=== PATIENT | female | born 1960 | race Caucasian/White ===

== ENCOUNTER 2020-04-30 13:50 | Inpatient (IN) | payer OTHER ==
[~2020-04-30] VITALS: Ht 168.9 cm; Wt 60.6 kg
[~2020-04-30 13:50] MED LIST: ANAS1TAB49 PO
[2020-04-30] MEDS ORDERED: MORPHINE SULFATE 4 MG/ML, 1ML ONE ×2 (14:13→17:21)
[2020-04-30] MEDS ORDERED: ONDANSETRON 2MG/ML, 2ML ONE (14:13)
[2020-04-30] MEDS: MORPHINE SULFATE 4 MG/ML, 1ML IVPush PRN ×2 (14:22→17:27)
[2020-04-30] MEDS ORDERED: ONDANSETRON 2MG/ML, 2ML IVPush ONE (14:30)
[2020-04-30] MEDS ORDERED: SODIUM CHLORIDE 0.9% 1,000ML IVBOLUS ONE (14:30)
[2020-04-30 14:33] LABS: BASOPHILS # (AUTO) 0.07 x10^3/uL (0-0.1); BASOPHILS % (AUTO) 1 % (0-1); EOSINOPHILS # (AUTO) 0.09 x10^3/uL (0-0.4); EOSINOPHILS % (AUTO) 1 % (1-7); LYMPHOCYTES # (AUTO) 1.45 x10^3/uL (1-3.4); LYMPHOCYTES % (AUTO) 15 % (22-44); MD NO; MEAN CORPUSCULAR HEMOGLOBIN 35.9 pg (27.0-34.8); MEAN CORPUSCULAR HGB CONC 33.4 g/dL (32.4-35.8); MEAN CORPUSCULAR VOLUME 107.7 fL (80-100); MEAN PLATELET VOLUME 10.9 fL (7.4-10.4); MONOCYTES # (AUTO) 0.91 x10^3/uL (0.2-0.8); MONOCYTES % (AUTO) 9 % (2-9); NEUTROPHILS # (AUTO) 7.24 x10^3/uL (1.8-6.8); NEUTROPHILS % (AUTO) 74 % (42-75); PLATELET COUNT 132 x10^3/uL (130-400); RED BLOOD COUNT 4.01 x10^6/uL (3.82-5.3)
[2020-04-30 14:45] LABS: ALANINE AMINOTRANSFERASE 49 U/L (12-78); ALBUMIN 3.2 g/dL (3.4-5.0); ANION GAP 6 mmol/L (5-15); CALCIUM 9.6 mg/dL (8.5-10.1); CHLORIDE 107 mmol/L (98-107); CREATININE 0.41 mg/dL (0.55-1.02)
[2020-04-30 14:47] LABS: ALKALINE PHOSPHATASE 200 U/L (45-117); BILIRUBIN,TOTAL 1.2 mg/dL (0.2-1.0); TOTAL PROTEIN 7.5 g/dL (6.4-8.2)
--- NOTE | 2020-04-30 15:00 | NUR ---
xr neg labs back ua pending. ivf infused. call conteh. as
[2020-04-30 15:11] LABS: MICROSCOPIC NOT IND
--- NOTE | 2020-04-30 15:34 | NUR ---
plan ct. as
--- NOTE | 2020-04-30 16:03 | NUR ---
to ct. as
[2020-04-30] MEDS ORDERED: OMNIPAQUE 350 MG/ML, 100ML BOTTLE ONE (16:18)
[2020-04-30] MEDS ORDERED: CIPROFLOXACIN/PMX 400MG/200ML 100 ML IVPB ONE (17:00)
[2020-04-30] MEDS ORDERED: METRONIDAZOLE PMX 500MG/100ML 100 ML IVPB ONE (17:00)
[2020-04-30] MEDS ORDERED: METRONIDAZOLE PMX 500MG/100ML 100 ML ONE (17:21)
[2020-04-30] MEDS ORDERED: CIPROFLOXACIN/PMX 400MG/200ML 200 ML ONE (17:21)
--- NOTE | 2020-04-30 18:11 | NUR ---
ADSMIT ORDER OBTAINED. PAIN MEDS ADEQUATE AT THIS POINT, ABX INFUSING PER NOV. PT OOB TO BATHROOM GAIT STEADY.
[2020-04-30] MEDS ORDERED: ACETAMINOPHEN 325 MG TABLET PO PRN (18:30)
[2020-04-30] MEDS ORDERED: DOCUSATE 100 MG CAPSULE PO PRN (18:30)
[2020-04-30] MEDS ORDERED: MORPHINE SULFATE 4 MG/ML, 1ML IVPush PRN (18:30)
[2020-04-30] MEDS ORDERED: BISACODYL 10 MG SUPP PR PRN (18:30)
[2020-04-30] MEDS ORDERED: hydrALAzine 20 MG/ML, 1ML IVPush PRN (18:30)
[2020-04-30] MEDS ORDERED: ONDANSETRON ODT 4 MG PO PRN (18:30)
--- NOTE | 2020-04-30 19:01 | NUR ---
report to marta jarrett. as
--- NOTE | 2020-04-30 19:14 | NUR ---
report to lavonne jarrett [address] will call when room ready. as
[2020-04-30] MEDS: LACTATED RINGERS 1,000 ML IV SCH (20:35)
[2020-04-30 20:43] VITALS: BP 127/71
[2020-04-30] MEDS: KETOROLAC 30 MG/1 ML IV PRN (22:04)
[2020-04-30] MEDS: ONDANSETRON 2MG/ML, 2ML IVPush PRN (22:04)
[2020-05-01 01:16] VITALS: BP 108/69
[2020-05-01] MEDS: METRONIDAZOLE PMX 500MG/100ML 100 ML IV SCH ×2 (03:08→12:10)
[2020-05-01 05:14] LABS: INTERNATIONAL NORMALIZED RATIO 1.19 (0.93-1.1); PROTHROMBIN TIME 12.3 Seconds (9.6-11.5)
[2020-05-01 05:44] LABS: MD YES; MEAN CORPUSCULAR HEMOGLOBIN 36.1 pg (27.0-34.8); MEAN CORPUSCULAR HGB CONC 33.3 g/dL (32.4-35.8); MEAN CORPUSCULAR VOLUME 108.4 fL (80-100); MEAN PLATELET VOLUME 10.9 fL (7.4-10.4); PLATELET COUNT 104 x10^3/uL (130-400); RED BLOOD COUNT 3.49 x10^6/uL (3.82-5.3); RED CELL DISTRIBUTION WIDTH 12.8 % (9.6-15.2)
[2020-05-01 05:48] LABS: BASOS#(MANUAL) 0.09 x10^3/uL (0-0.1); BASOS% (MANUAL) 1 % (0-1); EOS#(MANUAL) 0.09 x10^3/uL (0.0-0.4); EOS% (MANUAL) 1 % (1-7); LYMPHS% (MANUAL) 8 % (22-44); MONOS#(MANUAL) 1.04 x10^3/uL (0.3-2.7); MONOS% (MANUAL) 12 % (2-9); REACTIVE LYMPHS # (MANUAL) 0.09 x10^3/uL (0-0); REACTIVE LYMPHS % (MANUAL) 1 % (0-0); SEGS% (MANUAL) 77 % (42-75)
[2020-05-01 05:50] LABS: <RBC MORPHOLOGY> NORMAL
[2020-05-01 05:51] LABS: <PLATELET ESTIMATE> DECREASED; LARGE PLATELETS 1+
[2020-05-01] MEDS: LACTATED RINGERS 1,000 ML IV SCH ×2 (06:35→16:11)
[2020-05-01] MEDS: ONDANSETRON 2MG/ML, 2ML IVPush PRN ×3 (06:42→18:37)
[2020-05-01] MEDS: KETOROLAC 30 MG/1 ML IV PRN ×3 (06:42→18:37)
[2020-05-01 07:12] VITALS: BP 103/63
[2020-05-01] MEDS: SENNA/DOCUSATE TABLET PO SCH (08:00)
[2020-05-01] MEDS ORDERED: CIPROFLOXACIN/PMX 400MG/200ML 200 ML IV SCH (10:00)
[2020-05-01 13:29] VITALS: BP 108/39
[2020-05-01 18:55] VITALS: BP 101/64
[2020-05-02] MEDS: KETOROLAC 30 MG/1 ML IV PRN ×2 (00:25→06:24)
[2020-05-02 00:27] VITALS: BP 105/65
[2020-05-02] MEDS: LACTATED RINGERS 1,000 ML IV SCH ×2 (02:04→11:27)
[2020-05-02 06:38] VITALS: BP 105/58
[2020-05-02] MEDS: SENNA/DOCUSATE TABLET PO SCH (08:26)
[2020-05-02 13:00] VITALS: BP 116/63
[2020-05-02] MEDS ORDERED: CHLORHEXIDINE 15 ML UDC MM STA (14:48)
[2020-05-02] MEDS ORDERED: CHLORHEXIDINE 15 ML UDC ONE (14:50)
[2020-05-02] MEDS ORDERED: PROPOFOL 10 MG/ML, 20ML ONE ×2 (15:10)
[2020-05-02] MEDS ORDERED: MIDAZOLAM 1 MG/ML, 2ML ONE (15:10)
[2020-05-02] MEDS ORDERED: DEXAMETHASONE 4 MG/ML, 1ML ONE (15:34)
[2020-05-02] MEDS ORDERED: ONDANSETRON 2MG/ML, 2ML ONE (16:57)
[2020-05-02] MEDS: ONDANSETRON 2MG/ML, 2ML IVPush PRN (16:58)
[2020-05-02 19:00] VITALS: BP 113/74
[2020-05-03 00:23] VITALS: BP 102/62
[2020-05-03] MEDS: LACTATED RINGERS 1,000 ML IV SCH (01:08)
[2020-05-03] MEDS: SENNA/DOCUSATE TABLET PO SCH (07:19)
[2020-05-03 07:45] VITALS: BP 104/58
[2020-05-03] MEDS ORDERED: FAMO10TA77 PO (09:33)
== END 2020-05-03 10:32 | disposition home or self-care (01) | DRG 392 ==
LOC: ED 15:57 → EDIP 18:20 → 4NW 20:08 → DCLOUNGE 05-03 10:26
PROVIDERS: ADMIT Family Medicine; ATTEND Family Medicine
PROC: 0F9 Hepatobiliary System and Pancreas, Drainage (ICD-10-PCS; 2020-05-02)
PROC: 0DJ08ZZ Inspection of Upper Intestinal Tract, Via Natural or Artificial Opening Endoscopic (ICD-10-PCS; principal; 2020-05-02 15:00)
DX: K52.9 Noninfective gastroenteritis and colitis, unspecified (principal); E46 Unspecified protein-calorie malnutrition; R18.8 Other ascites; D69.6 Thrombocytopenia, unspecified; F17.200 Nicotine dependence, unspecified, uncomplicated; K29.70 Gastritis, unspecified, without bleeding; K29.80 Duodenitis without bleeding; K86.9 Disease of pancreas, unspecified; Z66 Do not resuscitate; Z85.3 Personal history of malignant neoplasm of breast; Z90.13 Acquired absence of bilateral breasts and nipples; Z90.49 Acquired absence of other specified parts of digestive tract; Z90.710 Acquired absence of both cervix and uterus; Z68.21 Body mass index [BMI] 21.0-21.9, adult; Z20.828 Contact with and (suspected) exposure to other viral communicable diseases
CPT/HCPCS: 36415; 74022; 74177; 80053; 81003; 83690; 85025; 85610; 86301; 87635; 88112; 88172; 88173; 88305; 93005; 96361; 96365; 96366; 96367; 96375; 96376; 99285; G0378; J0744; J1100; J1885; J2250; J2405; J2704; Q9967; J2270; J7030; J7120